=== PATIENT | female | born 1970 | race Caucasian/White ===

== ENCOUNTER 2022-10-15 09:26 | Outpatient (CLI) | payer OTHER | END 2022-10-15 09:27 | disposition home or self-care (01) | LOC: CSHULT 09:26 | PROVIDERS: ATTEND Obstetrics & Gynecology | DX: N60.19 Diffuse cystic mastopathy of unspecified breast (principal); N60.01 Solitary cyst of right breast | CPT/HCPCS: 77066; G0279 ==